=== PATIENT | male | born 1960 | race Caucasian/White ===

== ENCOUNTER 2022-06-19 11:33 | Observation (INO) | payer MEDICARE, MEDICAID, SELFPAY ==
[2022-06-19] VITALS (12 sets, daily range): BP systolic 116–154; BP diastolic 71–92; PULSE 51–70; RESP 15–34; TEMP 36.1–36.9; O2SAT 97–100; BMI 25.9; BMI 25.4
--- NOTE | 2022-06-19 12:01 | EKG12_ITS ---
Test Reason : CP Blood Pressure : / mmHG Vent. Rate : 065 BPM Atrial Rate : 065 BPM P-R Int : 176 ms QRS Dur : 086 ms QT Int : 404 ms P-R-T Axes : 051 069 049 degrees QTc Int : 420 ms Normal sinus rhythm with sinus arrhythmia Normal ECG Confirmed by ORQUIDEA ARZOLA, GEREMIAS ([id number]), editor producer RAJNI GOMEZ ([id number]) on 06/21/2022 6:38:49 AM Referred By: Confirmed By:GEREMIAS HEARD MD
--- NOTE | 2022-06-19 12:08 | EDS_ITS ---
HPI History of Present Illness Chief Complaint: Chest Pain Informant: patient Narrative Narrative: 62-year-old male presenting with chest pain. Started approximately 1 hour prior to arrival. Complains of midsternal chest pain associated with shortness of breath, diaphoresis, nausea. He states initially pain was 7 out of 10 currently 2 out of 10. Pain started at rest. He had recent work-up for syncope and is awaiting Holter monitor results. He states he had a syncopal episode approximately 3 days ago but was not seen in the ED following that episode. Denies PE/DVT risk factors. Prior Similar Symptoms: Yes Recent Illness/Hospitalization: No CVD Risk Factors: Positive for Smoking; Negative for Hypertension, Diabetes, Hypercholesterolemia or Family History 1' </=55 PE Risk Factors: Negative for Recent Travel/Surgery, Recent Immobilization, Prior DVT or PE, Cancer or OCP + Smoking + >/=35 PFSH PFSH Home Medications albuterol sulfate 90 mcg/actuation aerosol inhaler 2 puff inhalation Q4H PRN sob 06/19/22 [History Last Taken 06/19/22] Allergy/AdvReac Type Severity Reaction Status Date / Time No Known Allergies Allergy Verified 06/19/22 11:34 Surgical History Hx of elbow surgery Previous back surgery Social History Smoking Status: Current every day smoker tobacco type: cigarettes ROS ROS ED Constitutional Constitutional ED: Denies fever(s) Eyes Eyes: Denies change in vision ENT ENT ED: Denies rhinorrhea or sore throat Cardiovascular Cardiovascular: Reports chest pain; Denies palpitations Respiratory/Chest Respiratory/Chest: Reports dyspnea; Denies cough Gastrointestinal Gastrointestinal: Denies abdominal pain, diarrhea, nausea or vomiting Genitourinary Genitourinary ED: Denies dysuria Musculoskeletal Musculoskeletal: Denies myalgias Integumentary Denies rash Neurologic Neurologic: Denies headache(s) Psychiatric Psychiatric: Denies suicidal thoughts EXAM Physical Exam Const Vital Signs: 06/19/22 11:35 06/19/22 12:01 06/19/22 12:37 Temperature 98.2 F Temperature Source Temporal Pulse Rate 63 63 Respiratory Rate 18 21 H Blood Pressure 122/83 H 118/71 Blood Pressure Mean 96 86 Pulse Ox 100 100 98 Oxygen Delivery Method Room Air Room Air Room Air 06/19/22 13:00 06/19/22 14:00 Temperature Temperature Source Pulse Rate 62 58 L Respiratory Rate 34 H 18 Blood Pressure 116/79 121/81 H Blood Pressure Mean 91 94 Pulse Ox 98 98 Oxygen Delivery Method Positive well nourished and well developed General Appearance ED: well developed HEENT Reports normocephalic and head/scalp atraumatic Eyes PERRL and EOMs intact bilaterally Neck supple General: Negative for tenderness Chest Wall inspection of chest normal Resp normal respiratory effort and clear to auscultation bilaterally Cardio regular rate and regular rhythm GI non-tender and non-distended Palpation: soft; Negative for guarding or rebound tenderness present no CVA tenderness Extremity normal to inspection Neuro oriented x3 Sensorium / Orientation: alert Psych mental status grossly normal Heart Score History: Moderately Suspicious ECG: Normal Age: >45 - <65 years Risk Factors: 1 or 2 Risk Factors Troponin: </= Normal Limit Score: 3 MDM MDM MDM Narrative Medical decision making narrative: Patient was given aspirin on arrival. EKG is sinus rhythm rate of 65 with no acute ischemic changes. Patient denies medical history but does not see a physician regularly. CBC, chemistries are unremarkable. Troponin is negative. Patient is chest pain-free on reevaluation. His heart score is 3 but he does not see a physician regularly and does not know if he has underlying hypertension and hypercholesterolemia. Will discuss with hospitalist for observation. Lab Data Attestation: I reviewed the patient's lab results. Labs: Laboratory Results - last 24 hr 06/19/22 06/19/22 11:45 11:45 WBC 8.8 RBC 4.88 Hgb 15.0 Hct 44.0 MCV 90.2 MCH 30.7 MCHC 34.1 RDW Std Deviation 45.1 H RDW Coeff of Anila 13.5 Plt Count 251 MPV 9.7 Immature Gran % (Auto) 0.300 Neut % (Auto) 61.1 Lymph % (Auto) 29.5 [place] % (Auto) 6.7 Eos % (Auto) 1.8 Baso % (Auto) 0.6 Absolute Neuts (auto) 5.4 Absolute Lymphs (auto) 2.61 Nucleated RBC % 0 Sodium 141 Potassium 4.2 Chloride 107 Carbon Dioxide 30.0 Anion Gap 4 L BUN 14 Creatinine 0.88 Estim Creat Clear Calc 88.15 Est GFR (MDRD) Af Amer 113 Est GFR (MDRD) Non-Af 94 BUN/Creatinine Ratio 15.9 Glucose 90 Calcium 9.6 Troponin I High Sens 6 Radiography Chest X-Ray - ED: 1 View, Read by ED Physician, Read by Radiologist and No Acute Disease Diagnostic Testing: Clinical Impression(s) from Imaging Studies Chest X-Ray 06/19/22 12:31 IMPRESSION: No acute abnormality is seen. Electronically Signed: Juanito Xavier MD at 13:11 EDT , EKG Initial EKG: Attestation: I personally reviewed and interpreted this EKG as follows: Interpretation: Sinus Rhythm and No Acute Injury Pattern Discharge Plan Dx/Rx/DC Orders Clinical Impression: Chest pain Disposition Disposition: Acute Care Hospital [facility]
--- NOTE | 2022-06-19 12:31 | RAD_ITS ---
STUDY: X-RAY CHEST REASON FOR EXAM: Male, 62 years old. Chest pain. Bradycardia. Cough. Syncopal episode. TECHNIQUE: Single AP portable view of the chest. COMPARISON: None. FINDINGS: EKG electrodes are seen. The lungs are clear and expanded. Scattered calcified granulomas. There is no demonstrated pleural abnormality. Normal size heart. A recording device is seen overlying the upper left cardiac border. Normal mediastinum and bryan. Normal visualized pulmonary arteries. There is atherosclerotic calcification of the aortic arch with tortuosity. There are diffuse degenerative changes of the visualized thoracic spine. Normal visualized ribs, clavicles, and shoulders. There is no demonstrated abnormality of the visualized soft tissue structures of the upper abdomen. RAD/Chest 1 View (Portable) IMPRESSION: No acute abnormality is seen. Electronically Signed: Juanito Xavier MD at 13:11 EDT ,
[2022-06-19 12:36] LABS: Absolute Lymphocyte Count 2.61 X10^3/uL (0.83-4.51); Absolute Neutrophil Count 5.4 X10^3/uL (2.0-7.7); Basophil# 0.05 X10^3/uL; Basophil% 0.6 % (0-1); Eosinophil# 0.16 X10^3/uL; Eosinophils% 1.8 % (0-5); Lymphocyte # 2.61 X10^3/ul (0.83-4.51); Lymphocyte % 29.5 % (19-41); Mean Corp Hgb Conc 34.1 g/dL (32-36); Mean Corpuscular Hgb 30.7 pg (27.0-32.0); Mean Corpuscular Volume 90.2 fL (80-94); Mean Platelet Vol. 9.7 fl (6.2-12.0); Monocyte# 0.59 X10^3/uL; Monocyte% 6.7 % (0-10); NRBC Flagged by Analyzer 0 % (0-5); Neutrophil % 61.1 % (47-70); Platelet Count 251 K/mm3 (150-450); RBC Distribution Width CV 13.5 % (11.6-14.6); RBC Distribution Width SD 45.1 fl (35.1-43.9); Red Blood Count 4.88 M/mm3 (4.6-6.2); White Blood Count 8.8 K/mm3 (4.4-11.0)
[2022-06-19] MEDS: Aspirin 81 MG TAB.CHEW 324 MG PO (12:48)
[2022-06-19 12:49] LABS: Anion Gap 4 (5-15); BUN 14 mg/dL (7-18); BUN/Creat Ratio 15.9 RATIO (10-20); Calcium,Total 9.6 mg/dL (8.5-10.1); Chloride 107 mmol/L (98-107); Creatinine, Serum 0.88 mg/dL (0.70-1.30); EST Glomerular Filtration Rate 94 mL/min (>60); Est Glom Filt Rate - Afr Amer 113 mL/min (>60); Estimated Creatinine Clearance 88.15 ml/min; Glucose 90 mg/dL (74-106); Potassium 4.2 mmol/L (3.5-5.1); Sodium Level 141 mmol/L (136-145); Troponin-I HS (w/2H Reflex) 6 pg/mL (3.0-78.0)
[2022-06-19 14:29] LABS: Reflex Troponin-HS? (from REC) Y
[2022-06-19 15:07] LABS: Troponin-I HS 5 pg/mL (3.0-78.0)
--- NOTE | 2022-06-19 15:49 | PCM.HP.STD ---
[facility] - General General Date of Admission: 06/19/22 Date of Service: 06/19/22 Chief Complaint: Atypical chest pain for 1 month HPI Narrative SIMRAN MANLEY, is a 62 M with history of COPD/emphysema came to ED for chest pain left-sided for 1 month. Patient is accompanied with his son who also contributed to history. Patient stated that he gets chest pain on and off on left side mainly around the nipple which is reproducible on touch/pressure. Pain is localized, without radiation, but he gets dizzy lightheaded and recurrent passing out/syncope. No chest pain not associated with shortness of breath but patient has intermittent cough due to emphysema. No fever. Patient also has recurrent syncope for about 1 month, he passes out once daily or other day. He saw [facility] Dr. Barrera inside sales account manager and has portable event monitor/electronic monitor over left chest. He was told to wear for 1 month and then return to inside sales account manager. His son is states that his heart rate and blood pressure gets low when he falls but his fall is not related with standing/walking. He passes out while even on sitting/supine position. It is not accompanied with prodromal/warning symptoms. Duration of syncope usually few minutes and he wakes up with mild lethargy/groggy symptoms. Twelve-lead EKG sinus rhythm with nonspecific ST-T changes suggestive of ischemia. Chest x-ray did not show acute abnormality. [facility] Medical History Irregular heart beat Home Medications albuterol sulfate 90 mcg/actuation aerosol inhaler 2 puff inhalation Q4H PRN sob 06/19/22 [History Last Taken 06/19/22] Allergy/AdvReac Type Severity Reaction Status Date / Time No Known Allergies Allergy Verified 06/19/22 11:34 Surgical History Hx of elbow surgery Previous back surgery Social History Smoking Status: Current every day smoker tobacco type: cigarettes ROS ROS Narrative Constitutional: No fever. Recurrent syncope HEENT: Reports systems reviewed and no addt'l complaints, except as documented Respiratory/Chest: As described in HPI Gastrointestinal: Denies coffee ground emesis, hematemesis or vomiting Genitourinary: Denies burning urination or new urinary tract symptoms Musculoskeletal: Denies joint pain and limited range of motion. His toes gets cold and the skin grayish/pale. Neurologic: Denies seizure-like activity. No previous stroke. skin: No ulcer. No rash Endocrinology: Reports systems reviewed and no addt'l complaints, except as documented Hematologic/Lymphatic: Reports systems reviewed and no addt'l complaints, except as documented Rest 14 ROS are negative except as mentioned in HPI Vital Signs Vital Signs Vital Signs: 06/19/22 11:35 06/19/22 12:01 06/19/22 12:37 Temperature 98.2 F Temperature Source Temporal Pulse Rate 63 63 Pulse Strength Respiratory Rate 18 21 H Respiratory Effort Respiratory Depth Respiratory Pattern Blood Pressure 122/83 H 118/71 Blood Pressure Mean 96 86 Blood Pressure Source Blood Pressure Position Blood Pressure Location Pulse Ox 100 100 98 Oxygen Delivery Method Room Air Room Air Room Air 06/19/22 13:00 06/19/22 14:00 06/19/22 14:32 Temperature 97 F L Temperature Source Temporal Pulse Rate 62 58 L 55 L Pulse Strength Respiratory Rate 34 H 18 18 Respiratory Effort Respiratory Depth Respiratory Pattern Blood Pressure 116/79 121/81 H 124/81 H Blood Pressure Mean 91 94 95 Blood Pressure Source Blood Pressure Position Blood Pressure Location Pulse Ox 98 98 98 Oxygen Delivery Method Room Air 06/19/22 15:12 06/19/22 15:30 06/19/22 15:34 Temperature 97.4 F L Temperature Source Temporal Pulse Rate 60 63 Pulse Strength Normal (2+) Respiratory Rate 15 21 H Respiratory Effort Respiratory Depth Respiratory Pattern Blood Pressure 136/87 H 154/92 H Blood Pressure Mean 103 112 Blood Pressure Source Monitor Blood Pressure Position Semi-Fowlers Blood Pressure Location Left Arm Pulse Ox 97 99 Oxygen Delivery Method Room Air Room Air 06/19/22 15:41 Temperature Temperature Source Pulse Rate Pulse Strength Respiratory Rate Respiratory Effort Normal Non-Labored Respiratory Depth Normal Respiratory Pattern Normal Blood Pressure Blood Pressure Mean Blood Pressure Source Blood Pressure Position Blood Pressure Location Pulse Ox Oxygen Delivery Method Room Air Weight Weight: 172 lb 9.951 oz Body Mass Index (BMI) 25.4 Physical Exam Narrative Physical exam General: Alert, Oriented x3, Cooperative HEENT: Atraumatic, PERRLA, EOMI, Normocephalic Oral: No Gingival or Mucosal Lesions/ Ulcerations Neck: Supple, No JVD, Negative Carotid Bruits Lungs/chest wall: Electronic monitor over left chest wall. Tenderness around the left nipple area but no obvious swelling/abscess. Air entry diminished in bilateral lung bases. No crepitation/rhonchi Cardiovascular: Sinus rhythm, bradycardia, Normal S1, Normal S2, No murmurs Abdomen: Bowel Sounds Present, Soft, Non Tender, Non-Distended : No renal angle tenderness. No suprapubic tenderness. Extremities: No edema, Capillary Refill Less than 3 Seconds Skin: No rashes, No breakdown Musculoskeletal: No Tenderness to Palpation of Joints or Extremities Neurological: Cranial nerves II-XII grossly intact, DTR 2+/4 and Symmetrical, Neuro grossly intact Psych/Mental Status: Normal Affect, Appropriate. Results Lab / Micro Data Result Diagrams: 06/19/22 11:45 06/19/22 11:45 Labs: Laboratory Results - last 24 hr 06/19/22 11:45: WBC 8.8, RBC 4.88, Hgb 15.0, Hct 44.0, MCV 90.2, MCH 30.7, MCHC 34.1, RDW Std Deviation 45.1 H, RDW Coeff of Anila 13.5, Plt Count 251, MPV 9.7, Immature Gran % (Auto) 0.300, Neut % (Auto) 61.1, Lymph % (Auto) 29.5, [place] % (Auto) 6.7, Eos % (Auto) 1.8, Baso % (Auto) 0.6, Absolute Neuts (auto) 5.4, Absolute Lymphs (auto) 2.61, Nucleated RBC % 0 06/19/22 11:45: Sodium 141, Potassium 4.2, Chloride 107, Carbon Dioxide 30.0, Anion Gap 4 L, BUN 14, Creatinine 0.88, Estim Creat Clear Calc 88.15, Est GFR (MDRD) Af Amer 113, Est GFR (MDRD) Non-Af 94, BUN/Creatinine Ratio 15.9, Glucose 90, Calcium 9.6, Troponin I High Sens 6 06/19/22 14:39: Troponin I High Sens 5 Radiology Impression Chest X-Ray 06/19/22 12:31 IMPRESSION: No acute abnormality is seen. Electronically Signed: Juanito Xavier MD at 13:11 EDT , Assessment & Plan Assessment/Plan (1) Chest pain: PLAN: Plan This 62-year-old question gentleman being admitted for atypical chest pain. 1. Atypical chest pain for 1 month seems noncardiac: Patient is being admitted as an observation discharged. Rule out ACS. Serial troponin enzymes. EKG on admission. COURTNEY risk score 1. Patient does not have history of coronary artery disease/AR. His uncles had AR/coronary artery disease. Pharmacological nuclear stress tomorrow a.m. if serial troponins are negative. Patient was given aspirin in ED we will continue it. 2. Recurrent syncope, exact etiology unclear: Nature of syncope suggest cardiogenic syncope. Patient is already under evaluation for recurrent syncope with electronic monitor. Patient has sinus bradycardia. 2D echo is ordered. Patient denies having echo, stress or cardiac cath in the past. 3. COPD/emphysema: Patient on baseline home inhaler as needed. 4. VT prophylaxis, moderate risk: Heparin 5000 units subcutaneous twice daily. Living will/advanced directive/end of life care: Patient does not have living will or advanced directive. After discussion of benefits/risks procedures involved with full code, DNR CC arrest and DNR CC, the patient opted for full code. His son Hair is next to kin. Patient does want artificial life support including intubation, tube feed, ventilator and/chest compression, central venous catheter, vasopressor and DC shock if needed Total time spent in [id number] encounter in discussion of advanced directive 16 minutes. Laboratory Results 06/19/22 11:45: WBC 8.8, RBC 4.88, Hgb 15.0, Hct 44.0, MCV 90.2, MCH 30.7, MCHC 34.1, RDW Std Deviation 45.1 H, RDW Coeff of Anila 13.5, Plt Count 251, MPV 9.7, Immature Gran % (Auto) 0.300, Neut % (Auto) 61.1, Lymph % (Auto) 29.5, [place] % (Auto) 6.7, Eos % (Auto) 1.8, Baso % (Auto) 0.6, Absolute Neuts (auto) 5.4, Absolute Lymphs (auto) 2.61, Nucleated RBC % 0 06/19/22 11:45: Sodium 141, Potassium 4.2, Chloride 107, Carbon Dioxide 30.0, Anion Gap 4 L, BUN 14, Creatinine 0.88, Estim Creat Clear Calc 88.15, Est GFR (MDRD) Af Amer 113, Est GFR (MDRD) Non-Af 94, BUN/Creatinine Ratio 15.9, Glucose 90, Calcium 9.6, Troponin I High Sens 6 06/19/22 14:39: Troponin I High Sens 5 06/19/22 14:39: Magnesium Pending Clinical Impression(s) from Imaging Studies Chest X-Ray 06/19/22 12:31 IMPRESSION: No acute abnormality is seen. Electronically Signed: Juanito Xavier MD at 13:11 EDT , Charges/Coding Visit Charges OBSV E&M: 68335 Initial observation care L3 Procedures Hospitalists Procedures: 61410 Advncd Care Plan 30 Min
[2022-06-19 18:48] LABS: Troponin-I HS 7 pg/mL (3.0-78.0)
--- NOTE | 2022-06-19 18:51 | EKG12_ITS ---
Test Reason : AM EKG Blood Pressure : / mmHG Vent. Rate : 051 BPM Atrial Rate : 051 BPM P-R Int : 184 ms QRS Dur : 092 ms QT Int : 422 ms P-R-T Axes : 043 077 069 degrees QTc Int : 388 ms Sinus bradycardia with sinus arrhythmia Otherwise normal ECG Confirmed by ORQUIDEA ARZOLA, GEREMIAS ([id number]), design editor RAJNI GOMEZ ([id number]) on 06/21/2022 6:50:02 AM Referred By: Confirmed By:GEREMIAS HEARD MD
[2022-06-19] MEDS: Heparin Injection (Vial) 5,000 UNIT/ML VIAL 5000 UNIT SC (21:01)
[2022-06-20 03:04] VITALS: BP 115/75; PULSE 59; RESP 18; TEMP 36.2; O2SAT 96
[2022-06-20 03:32] VITALS: PULSE 57
--- NOTE | 2022-06-20 05:55 | EKG12_ITS ---
Test Reason : Blood Pressure : / mmHG Vent. Rate : 049 BPM Atrial Rate : 049 BPM P-R Int : 196 ms QRS Dur : 096 ms QT Int : 424 ms P-R-T Axes : 043 072 053 degrees QTc Int : 383 ms Sinus bradycardia Otherwise normal ECG Confirmed by ORQUIDEA ARZOLA, GEREMIAS ([id number]), staff editor RAJNI GOMEZ ([id number]) on 06/21/2022 6:50:28 AM Referred By: ABRIL Confirmed By:GEREMIAS HEARD MD
[2022-06-20] MEDS: Aspirin E.C. 81 MG Tablet PO (06:08)
[2022-06-20 06:10] LABS: Absolute Lymphocyte Count 2.97 X10^3/uL (0.83-4.51); Absolute Neutrophil Count 4.2 X10^3/uL (2.0-7.7); Basophil# 0.05 X10^3/uL; Basophil% 0.6 % (0-1); Eosinophil# 0.24 X10^3/uL; Hematocrit 40.9 % (40-54); Hemoglobin 13.5 g/dL (13.0-16.5); Lymphocyte # 2.97 X10^3/ul (0.83-4.51); Lymphocyte % 37.1 % (19-41); Mean Corpuscular Hgb 29.1 pg (27.0-32.0); Mean Corpuscular Volume 88.1 fL (80-94); Mean Platelet Vol. 9.8 fl (6.2-12.0); Monocyte# 0.51 X10^3/uL; Monocyte% 6.4 % (0-10); NRBC Flagged by Analyzer 0 % (0-5); Neutrophil # 4.21 X10^3/uL (2.7-7.7); Neutrophil % 52.6 % (47-70); Platelet Count 220 K/mm3 (150-450); RBC Distribution Width CV 13.5 % (11.6-14.6); Red Blood Count 4.64 M/mm3 (4.6-6.2)
[2022-06-20 07:12] LABS: Anion Gap 3 (5-15); BUN 20 mg/dL (7-18); BUN/Creat Ratio 23.1 RATIO (10-20); Calcium,Total 9.2 mg/dL (8.5-10.1); Chloride 109 mmol/L (98-107); Cholesterol 184 mg/dL (200); Creatinine, Serum 0.87 mg/dL (0.70-1.30); EST Glomerular Filtration Rate 95 mL/min (>60); Est Glom Filt Rate - Afr Amer 115 mL/min (>60); Estimated Creatinine Clearance 89.17 ml/min; Glucose 103 mg/dL (74-106); High Density Lipoprotein 39 mg/dL; Potassium 3.9 mmol/L (3.5-5.1); Sodium Level 140 mmol/L (136-145); Thyroid Stim Hormone (TSH) 0.22 uIU/mL (0.358-3.74); Triglycerides 88 mg/dL; Very Low Density Lipoprotein 18 mg/dL (5-40)
[2022-06-20 07:20] VITALS: PULSE 79
--- NOTE | 2022-06-20 08:44 | STRESSREP_ITS ---
Stress Test Report Date: 06-20-2022 Procedure: Pharmacologic stress nuclear imaging study Indications: Chest pain; syncope Consent: Per the patient Procedure: The patient underwent pharmacologic (Regadenoson 0.4mg ) evaluation with a peak heart rate of 100 beats per minute (62%predicted maximal heart rate) and resting blood pressure of 132/64 mmHg and a peak blood pressure of 150/72 mmHg. The baseline ECG demonstrated normal sinus rhythm. The peak pharmacologic ECG demonstrated no obvious ECG changes. There was a rare PVC during recovery. There was no complaint of chest discomfort during pharmacologic infusion or recovery. The examination was discontinued secondary to completion of protocol. Impression: 1. Pharmacologic (Regadenoson) evaluation 2. Peak pharmacologic ECG with no obvious ECG changes. 3. There was a rare PVC during recovery. 4. Nuclear images pending Myocardial perfusion imaging study: Technique: The patient was injected with 12.0 millicuries of technetium 99m Cardiolite and subsequently rest SPECT Cardiolite nuclear imaging was obtained in the horizontal long, vertical long, and short axis views. The patient underwent pharmacologic (Regadenoson) evaluation with a peak heart rate of 100 beats per minute (62% percent predicted maximal heart rate) and a resting blood pressure 132/64 mmHg and a peak blood pressure of 150/72 mmHg mmHg. The patient was injected with 34.0 millicuries of technetium 99m Cardiolite and subsequently stress SPECT Cardiolite nuclear imaging was obtained in the horizontal long, vertical long, and short axis views. A gated Cardiolite study at peak stress was obtained. Interpretation: Rest and stress SPECT Cardiolite nuclear imaging status post realignment, normalization, and attenuation correction demonstrate a small area of subtle diminished tracer uptake near the distal anterior segments without significant change between rest and stress. There is end systolic thickening and brightening. The gated Cardiolite study demonstrates myocardial thickening and inward wall motion. The reported LVEF is 60%. Impression: 1. Rest and stress SPECT her nuclear imaging demonstrate a small area of subtle diminished tracer uptake near the distal anterior segments without significant change between rest and stress potentially compatible with soft tissue attenuation/artifact although a small area of previous myocardial injury/infarction cannot necessarily be excluded. There are no myocardial perfusion changes considered diagnostic for associated stress-induced myocardial ischemia. 2. The gated Cardiolite study reports an LVEF of 60%. This note was generated with textmetix software. It may contain incorrect words, spelling, and punctuation that were not noted in checking the note before signing.
--- NOTE | 2022-06-20 09:01 | ECHOD_ITS ---
Reason For Study: Chest Pain Procedure This was a 2D Doppler, Color Flow transthoracic echocardiogram. The exam was of adequate technical quality. Exam performed portable in patient room. Left Ventricle Normal LV size. Left ventricular systolic function is normal. The estimated ejection fraction is 55 %. No evidence for diastolic dysfunction. No regional wall motion abnormalities noted. Right Ventricle Normal RV size. Normal systolic function. Atria Normal left atrium. Normal right atrium. No doppler evidence for ASD. Mitral Valve There is no mitral annular calcification. Normal mitral valve. Mild (1+) mitral valve insufficiency. Tricuspid Valve Normal tricuspid valve. Mild eccentric tricuspid valve insufficiency. Unable to estimate RV systolic pressure due to insufficient tricuspid regurgitant envelope. Aortic Valve Trisinus/trileaflet aortic valve. Mild diffuse aortic valve thickening. Pulmonic Valve The pulmonic valve is not well visualized. Trivial pulmonic valve insufficiency. Great Vessels The aortic root is not well visualized. Pericardium/Pleural No pericardial effusion. MMode/2D Measurements & Calculations LVIDd: 5.5 cm IVSd: 0.97 cm LA dimension: 3.6 cm LVIDs: 3.5 cm LVPWd: 0.89 cm FS: 36.0 % LAV(MOD-bp): 41.5 ml LA A4 area: 13.7 cm2 RA A4 area: 14.2 cm2 LAV(MOD-bp) Indexed: 21.4 ml/m2 LAV(MOD-sp2): 46.6 ml LAV(MOD-sp4): 34.4 ml Time Measurements MV dec time: 0.15 sec Doppler Measurements & Calculations MV E max nicolas: 69.1 cm/sec Lat Peak E' Nicolas: 10.1 cm/sec Med Peak E' Nicolas: 9.7 cm/sec MV A max nicolas: 69.0 cm/sec E/E' lat: 6.9 E/E' med: 7.1 MV E/A: 1.0 MV V2 max: 93.4 cm/sec MV P1/2t max nicolas: 93.4 cm/sec Ao V2 max: 115.7 cm/sec MV max P.5 mmHg MV P1/2t: 62.1 msec Ao max P.4 mmHg MV V2 mean: 44.1 cm/sec MV dec slope: 440.6 cm/sec2 Ao V2 mean: 78.4 cm/sec MV mean P.98 mmHg MVA(P1/2t): 3.5 cm2 Ao mean P.9 mmHg MV V2 VTI: 30.4 cm Ao V2 VTI: 26.4 cm LV V1 max: 92.8 cm/sec MR max nicolas: 444.6 cm/sec PA V2 max: 96.5 cm/sec LV V1 max P.4 mmHg MR max P.1 mmHg LV V1 mean P.7 mmHg LV V1 mean: 61.3 cm/sec LV V1 VTI: 19.6 cm ECHO/Echo Complete Interpretation Summary Left ventricular systolic function is normal. The estimated ejection fraction is 55 %. Mild (1+) mitral valve insufficiency. Mild eccentric tricuspid valve insufficiency. Mild diffuse aortic valve thickening. Trivial pulmonic valve insufficiency. Unable to estimate RV systolic pressure due to insufficient tricuspid regurgita nt envelope. No evidence for diastolic dysfunction. Ordering Physician: Anna Laboy Performed By: Jae Rizzo RCS
[2022-06-20 09:13] VITALS: BP 128/65; PULSE 69; RESP 16; TEMP 36.5; O2SAT 100
[2022-06-20 09:27] LABS: T4 Free Direct 0.88 ng/dL (0.76-1.46)
--- NOTE | 2022-06-20 11:53 | CHAPLAIN ---
Type of Pastoral Visit _x__ Initial Visit ___ Follow-up Visit ___ On-call Visit ___ General Patient Visit ___ Spiritual Assessment ___ Family Conference ___ Bereavement ___ Rapid Response ___ Code Blue ___ Other (describe below) Pastoral Care Referral From _x__ Patient ___ Family ___ Nurse ___ Physician ___ Personal Finance Instructor ___ Electrical Helper ___ Other (describe below) Sacrament/Intervention _x__ Active listening ___ Anointing ___ Confucianism ___ Bereavement ___ Communion ___ [place] exploration ___ ___ Life review _x__ Prayer ___ Reconciliation ___ Sacrament of Sick ___ Supportive presence ___ Wedding ___ Other (describe below) Pastoral Comments 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
[2022-06-20 12:29] VITALS: PULSE 59
--- NOTE | 2022-06-20 14:31 | PCM.DC ---
Discharge Instructions Diet Discharge Diet: No restrictions Activity Discharge Activity: Return to Normal Activity Follow Up Care Test Results: Test results from this visit will be discussed in further detail at your follow-up appointment, if applicable. Discharge Plan Admission Admit Date/Time: 06/19/22 14:30 Primary Reason for Your Visit: Chest pain Attending Provider: Anna Laboy Primary Care Provider: Maged Casillas Consulting Providers: Joaquín Aly Instructions Patient Instructions: COPD Quit Smoking, Planning to Quit Smoking Additional Instructions / Restrictions: - Please follow-up with your [facility] doctor to discuss your heart monitor - it is important you establish with a primary care physician for further coordination of care. You have indicated you will obtain one through the [facility] to have your healthcare team in the [employer] system. - Please return to the emergency department with any concerning signs or symptoms. Discharge Orders/Prescriptions Prescriptions: Continued albuterol sulfate 90 mcg/actuation HFA aerosol inhaler 2 puff INHALATION Q4H PRN (Reason: sob) Label Comments: Inhale 2 Puffs as instructed every 4 hours as needed for wheezing/shortness of breath. Referrals / Follow Up: Maged Casillas MD [Primary Care Provider] - Galen Cavazos MD [Non-Staff] - Disposition Disposition (needs filled in before D/C Order can be placed): Home, Self Care
--- NOTE | 2022-06-20 15:29 | CASEMGMT ---
CHRISTOPHER LEVY attempted to complete URIARTE form with patient. Patient was discharged and unable to complete URIARTE.
--- NOTE | 2022-06-20 17:30 | DS.PCM_ITS ---
Providers Date of Admission: 06/19/22 Date of Discharge: 06/20/22 Primary Care Physician: Dr. Maged Casillas MD Reason For Visit: CHEST PAIN Diagnosis Discharge Diagnosis (1) Chest pain: Status: Acute Code(s): R07.9 - Chest pain, unspecified Medications at Discharge Home Medications albuterol sulfate 90 mcg/actuation aerosol inhaler 2 puff inhalation Q4H PRN sob 06/19/22 Hospital Course Procedures Nuclear stress test and Transthoracic echo Summary of Care Provided Minutes Spent on Discharge: 20 Hospital Course: Mr. Rosales is a [age]-year-old gentleman with a history of COPD who presented 06/19/2022 for atypical chest pain over 1 month. It is primarily left-sided and reproducible on touch/pressure it does not radiate. Was having intermittent dizziness, though does note that he has had recurrent syncope and is following with [facility] for this. No changes in his breathing, intermittent cough with his COPD. He is wearing a heart monitor at this time and is supposed to wear for 1 month and then follow-up with cardiology. Troponins were negative, EKG nonspecific. Chest x-ray no acute abnormalities. He underwent a stress test that showed questionable artifact versus small area of previous myocardial injury. His echo however showed no regional wall motion abnormalities. Did discuss with lay out former regarding his stress test and echo and further work-up and it was deemed no further work-up necessary. Will discharge home in stable condition and advised to continue to follow-up with [facility] cardiology. Does note that he is looking to get a primary care physician but would like to go through [facility] for that as well so his healthcare team remains in the same system. On day of discharge 06/20/2022 he denied any new complaints, did still have chest soreness that was reproducible but mild. No other complaints aside from feeling cold in general which has been present for months. Did note that legs were cold and he felt his left leg was colder than his right, this was not observed on exam and pulses 2+ DP/Td bilaterally Physical Exam Const alert and oriented x3 General Appearance: cooperative and comfortable HEENT normocephalic and head/scalp atraumatic Eyes EOMs intact bilaterally Neck supple Resp normal respiratory effort and clear to auscultation bilaterally Cardio regular rate and regular rhythm GI soft to palpation, non-tender and non-distended Extremity normal to inspection Extremity Narrative: 2+ pulses in MANJIT/DP bilaterally 2+ pulses NTD/DP bilaterally, legs are cool but no significant difference between temperatures, no mottling or cyanosis Skin no rashes or lesions noted Neuro moves all extremities Psych affect normal Weight / BMI Weight Weight: 78.6 kg Body Mass Index (BMI) 25.4 ABG / Lab / Microbiology Data Result Diagrams: 06/20/22 05:18 06/20/22 05:18 Laboratory: Laboratory Results - last 24 hr 06/19/22 18:07: Troponin I High Sens 7 06/20/22 05:18: WBC 8.0, RBC 4.64, Hgb 13.5, Hct 40.9, MCV 88.1, MCH 29.1, MCHC 33.0, RDW Std Deviation 44.0 H, RDW Coeff of Anila 13.5, Plt Count 220, MPV 9.8, Immature Gran % (Auto) 0.300, Neut % (Auto) 52.6, Lymph % (Auto) 37.1, Wilkes % (Auto) 6.4, Eos % (Auto) 3.0, Baso % (Auto) 0.6, Absolute Neuts (auto) 4.2, Absolute Lymphs (auto) 2.97, Nucleated RBC % 0 06/20/22 05:18: Sodium 140, Potassium 3.9, Chloride 109 H, Carbon Dioxide 28.0, Anion Gap 3 L, BUN 20 H, Creatinine 0.87, Estim Creat Clear Calc 89.17, Est GFR (MDRD) Af Amer 115, Est GFR (MDRD) Non-Af 95, BUN/Creatinine Ratio 23.1 H, Glucose 103, Calcium 9.2, Triglycerides 88, Cholesterol 184, LDL Cholesterol 127, VLDL Cholesterol 18, HDL Cholesterol 39 L, TSH 0.22 L 06/20/22 05:18: Free T4 0.88 Radiography Diagnostic Testing: Radiology Impression Echocardiogram 06/20/22 09:01 Interpretation Summary Left ventricular systolic function is normal. The estimated ejection fraction is 55 %. Mild (1+) mitral valve insufficiency. Mild eccentric tricuspid valve insufficiency. Mild diffuse aortic valve thickening. Trivial pulmonic valve insufficiency. Unable to estimate RV systolic pressure due to insufficient tricuspid regurgitant envelope. No evidence for diastolic dysfunction. Ordering Physician: Anna Laboy Performed By: Jae Rizzo RCS D/C Instructions Discharge Diet: No restrictions Meaningful Use Info Meaningful Use Diagnoses (Choose all that apply): None applicable Discharge Plan Admission Admit Date/Time: 06/19/22 14:30 Primary Reason for Your Visit: Chest pain Attending Provider: Anna Laboy Primary Care Provider: Maged Casillas Consulting Providers: Joaquín Aly Instructions Patient Instructions: COPD Quit Smoking, Planning to Quit Smoking Additional Instructions / Restrictions: - Please follow-up with your [facility] doctor to discuss your heart monitor - it is important you establish with a primary care physician for further coordination of care. You have indicated you will obtain one through the [facility] to have your healthcare team in the [facility] [employer] system. - Please return to the emergency department with any concerning signs or symptoms. Discharge Orders/Prescriptions Prescriptions: Continued albuterol sulfate 90 mcg/actuation HFA aerosol inhaler 2 puff INHALATION Q4H PRN (Reason: sob) Label Comments: Inhale 2 Puffs as instructed every 4 hours as needed for wheezing/shortness of breath. Referrals / Follow Up: Maged Casillas MD [Primary Care Provider] - Galen Cavazos MD [Non-Staff] - Disposition Disposition (needs filled in before D/C Order can be placed): Home, Self Care Charges/Coding Visit Charges OBSV E&M: 39270 Observation care discharge
== END 2022-06-20 14:35 | disposition home or self-care (01) ==
LOC: ED 14:33 → PCU 14:50
PROVIDERS: Admitting Provider Internal Medicine; Emergency Provider Emergency Medicine; PCP Family Medicine; Visit Provider Internal Medicine
DX: R07.89 Other chest pain (principal); J43.9 Emphysema, unspecified; R55 Syncope and collapse; R42 Dizziness and giddiness; F17.210 Nicotine dependence, cigarettes, uncomplicated; R00.1 Bradycardia, unspecified
CPT/HCPCS: 36415; 71045; 78452; 80048; 80061; 83735; 84439; 84443; 84484; 85025; 93005; 93017; 93306; 96372; 99218; 99285; 99406; A9500; A4216; G0378; J2785

== ENCOUNTER 2022-07-01 03:28 | Emergency (ER) | payer MEDICARE, MEDICAID, SELFPAY ==
[2022-07-01 03:29] VITALS: BP 120/68; PULSE 80; RESP 18; TEMP 37.3; O2SAT 97; BMI 25.4
--- NOTE | 2022-07-01 04:10 | EX.ED.DYSGE1 ---
HPI History of Present Illness Chief Complaint: Back Narrative Narrative: Patient is a 62-year-old male with past medical history of COPD/emphysema as well as low back pain. He states that his low back typically hurts but over the last few days has had increasing left-sided low back pain radiating down towards his toes. He denies any loss of bowel or bladder control or IV drug use. He denies any recent trauma or excessive activity. He denies any hematuria or dysuria. He states that the pain is not improving with time or [id number] medications and secondary to this he comes in for evaluation [facility] Medical History Chest pain Irregular heart beat Home Medications albuterol sulfate 90 mcg/actuation aerosol inhaler 2 puff inhalation Q4H PRN sob 06/19/22 [History Last Taken 06/19/22] hydrocodone-acetaminophen 5-325mg 5mg-325mg 1 tab PO Q6H PRN pain 3 days #12 tabs 07/01/22 [Rx Last Taken Unknown] methocarbamol 500 mg tablet 1,000 mg PO 4X/DAY PRN PRN Muscle pain/spasm #56 tabs 07/01/22 [Rx Last Taken Unknown] ondansetron 4 mg disintegrating tablet 4 mg PO TID PRN nausea and vomiting #21 tabs 07/01/22 [Rx Last Taken Unknown] Allergy/AdvReac Type Severity Reaction Status Date / Time No Known Allergies Allergy Verified 06/19/22 11:34 Surgical History Hx of elbow surgery Previous back surgery Social History Smoking Status: Current every day smoker tobacco type: cigarettes ROS ROS ED Constitutional Constitutional ED: Denies chills or fever(s) ENT ENT ED: Denies sore throat Cardiovascular Cardiovascular: Denies chest pain Respiratory/Chest Respiratory/Chest: Denies cough or dyspnea Gastrointestinal Gastrointestinal: Denies abdominal pain, diarrhea, nausea or vomiting Genitourinary Genitourinary ED: Denies dysuria Musculoskeletal Musculoskeletal: Reports back pain Integumentary Denies rash Neurologic Neurologic: Reports paresthesias and weakness; Denies headache(s) Hematologic/Lymphatic Hematologic/Lymphatic: Denies easy bleeding or easy bruising EXAM Physical Exam Const Vital Signs: 07/01/22 03:29 Temperature 99.2 F H Temperature Source Temporal Pulse Rate 80 Respiratory Rate 18 Blood Pressure 120/68 Blood Pressure Mean 85 Pulse Ox 97 Positive well nourished and well developed General Appearance ED: well developed Eyes PERRL and EOMs intact bilaterally Neck supple Resp normal respiratory effort Resp Narrative: Faint wheeze noted in the bilateral lower lobes consistent with history of emphysema but no signs of respiratory distress Cardio regular rate and regular rhythm Rate: other Other Details: Radial pulses are plus 2 out of 4 bilaterally are equal and symmetric GI normal to inspection, nondistended, normoactive bowel sounds, non-tender and non-distended Auscultation: normoactive bowel sounds Palpation: soft Back/Spine Back/Spine Narrative: No bony deformity or step-off of the thoracic or lumbar spine no midline pain with palpation. There is pain on palpation in the left paralumbar muscle belly region. No saddle anesthesia noted. Positive straight leg raise on left. Negative clonus and Babinski. Patellar reflexes are plus 3 out of 4 bilaterally. No foot drop noted. Patient does have increased weakness of the left leg compared to right. Extremity normal to inspection Extremity Narrative: No asymmetric edema no pitting edema negative Homans' sign bilaterally Neuro oriented x3, CN's II-XII intact bilaterally and no sensory deficits noted Sensorium / Orientation: alert Psych mental status grossly normal Skin no rashes or lesions noted MDM MDM MDM Narrative Medical decision making narrative: Patient presented to the ER with stable vitals. He did not have any red flags concerning for cauda equina or epidural abscess. His exam is consistent with lumbar radiculopathy. We discussed obtaining a CT scan to check for possible spinal stenosis and nerve impingement but we did also discuss how CT is not as sensitive as MRI and may not show the true cause of his symptoms. Patient asked if the CT scan would change plan of care and at this time it would not as his vitals are stable and he has no signs of neuro claudication. Therefore he will be treated symptomatically and can follow-up on an outpatient basis for repeat evaluation and discuss outpatient MRI for further evaluation of his worsening back pain. Discharge Plan Triage Chief Complaint: Back ED Provider: Fili Escudero Dx/Rx/DC Orders Clinical Impression: Acute lumbar radiculopathy, Emphysema/COPD Instructions: Understanding Lumbar Radiculopathy Prescriptions: New hydrocodone-acetaminophen 5-325 mg tablet 1 tab PO Q6H PRN (Reason: pain) 3 Days Qty: 12 0RF methocarbamol 500 mg tablet 1,000 mg PO 4X/DAY PRN PRN (Reason: Muscle pain/spasm) Qty: 56 0RF ondansetron 4 mg tablet,disintegrating 4 mg PO TID PRN (Reason: nausea and vomiting) Qty: 21 0RF No Action albuterol sulfate 90 mcg/actuation HFA aerosol inhaler 2 puff INHALATION Q4H PRN (Reason: sob) Label Comments: Inhale 2 Puffs as instructed every 4 hours as needed for wheezing/shortness of breath. Primary Care Provider: Maged Casillas Referrals: Maged Casillas MD [Primary Care Provider] - Zak Queen DO [Med Staff - Active Staff] - Activity Restrictions/Additional Instructions: Please take your medication as directed to help control your symptoms and follow-up with Dr. Queen for further evaluation and possible MRI to further assess the cause of your pain. If you have any further concerns please return to the ER for repeat evaluation Disposition Disposition: Home, Self Care Discharge Date/Time: 07/01/22 04:46
[2022-07-01] MEDS: Ondansetron ODT 4 MG Tablet PO (04:13)
[2022-07-01] MEDS: Morphine 4 MG/ML Syringe 8 MG IM (04:15)
[2022-07-01] MEDS: dexAMETHasone 10 MG/ML Vial IM (04:15)
[2022-07-01] MEDS: Orphenadrine 60 MG/2 ML Ampul IM (04:15)
== END 2022-07-01 04:46 | disposition home or self-care (01) ==
PROVIDERS: Emergency Provider Emergency Medicine; PCP Family Medicine; Visit Provider Emergency Medicine
DX: M54.16 Radiculopathy, lumbar region (principal); J43.9 Emphysema, unspecified; F17.210 Nicotine dependence, cigarettes, uncomplicated
CPT/HCPCS: 96372; 99283

== ENCOUNTER 2022-09-06 19:02 | Observation (INO) | payer MEDICARE, MEDICAID, SELFPAY ==
[2022-09-06 19:03] VITALS: BP 157/88; PULSE 71; RESP 69; TEMP 36.6; O2SAT 100; BMI 27.2
--- NOTE | 2022-09-06 19:08 | EKG12_ITS ---
Test Reason : DYSRHYTHMIA Blood Pressure : / mmHG Vent. Rate : 068 BPM Atrial Rate : 068 BPM P-R Int : 162 ms QRS Dur : 096 ms QT Int : 390 ms P-R-T Axes : 051 078 069 degrees QTc Int : 414 ms Normal sinus rhythm Normal ECG Confirmed by USMAN ARZOLA, MEAGAN ([id number]), greeting card editor RAJNI GOMEZ ([id number]) on 09/08/2022 6:34:51 AM Referred By: MARY Confirmed By:JOSÉ MIGUEL MARY MD
[2022-09-06 19:09] VITALS: O2SAT 99
--- NOTE | 2022-09-06 19:10 | RAD_ITS ---
STUDY: X-RAY CHEST REASON FOR EXAM: Male, 62 years old. chest pain TECHNIQUE: XR Chest 1 View COMPARISON: 06.19.22 FINDINGS: There is atherosclerotic calcification of the aortic arch with tortuosity. There are diffuse degenerative changes of the visualized thoracic spine. There is degenerative osteoarthritis of the bilateral shoulders. There is no demonstrated pleural abnormality. Normal size heart. Normal mediastinum and bryan. Normal visualized pulmonary arteries. There is no demonstrated abnormality of the visualized soft tissue structures of the upper abdomen. RAD/Chest 1 View (Portable) IMPRESSION: There are no acute findings. Electronically Signed: Chuy Michael MD at 19:33 EST ,
[2022-09-06 19:20] LABS: Absolute Neutrophil Count 4.4 X10^3/uL (2.0-7.7); Basophil# 0.07 X10^3/uL; Basophil% 0.7 % (0-1); Eosinophil# 0.34 X10^3/uL; Eosinophils% 3.3 % (0-5); Hemoglobin 15.1 g/dL (13.0-16.5); Lymphocyte % 46.1 % (19-41); Mean Corp Hgb Conc 32.8 g/dL (32-36); Mean Corpuscular Hgb 29.8 pg (27.0-32.0); Mean Corpuscular Volume 90.9 fL (80-94); Mean Platelet Vol. 9.4 fl (6.2-12.0); Monocyte# 0.83 X10^3/uL; NRBC Flagged by Analyzer 0 % (0-5); Neutrophil # 4.35 X10^3/uL (2.7-7.7); Neutrophil % 41.7 % (47-70); Platelet Count 291 K/mm3 (150-450); RBC Distribution Width CV 13.3 % (11.6-14.6); RBC Distribution Width SD 45.1 fl (35.1-43.9); Red Blood Count 5.06 M/mm3 (4.6-6.2); White Blood Count 10.4 K/mm3 (4.4-11.0)
--- NOTE | 2022-09-06 19:25 | ED.RN ---
NIH done and Dr Burt made aware of neuro sx
--- NOTE | 2022-09-06 19:44 | CT_ITS ---
EXAM: CT ANGIOGRAPHY CHEST WITHOUT AND WITH INTRAVENOUS CONTRAST CLINICAL INDICATION: chest pain TECHNIQUE: Helically acquired angiography images were obtained of the chest without and with intravenous contrast. This CT exam was performed using one or more of the following dose reduction techniques: automated exposure control, adjustment of the mA and/or kV according to patient size, and/or use of iterative reconstruction technique. This report was created using [employer] report generation technology. MIP reconstructed images were created and reviewed. CONTRAST: IV 100mL Isovue-370 RADIATION DOSE: CTDIvol = 28.14 mGy, DLP = 3062.43 mGy-cm COMPARISON: None. FINDINGS: PULMONARY ARTERIES: No demonstrated pulmonary embolism or arterial dissection. AORTA: There is atherosclerotic calcification of the aortic arch with tortuosity and elongation of the aortic arch and descending thoracic aorta. Normal in caliber. No evidence of dissection. GREAT VESSELS OF AORTIC ARCH: Unremarkable. Normal in caliber. No evidence of dissection. LUNGS AND PLEURAL SPACES: Unremarkable. No mass. No consolidation or edema. No pleural effusion or thickening. No pneumothorax. HEART: There are calcifications of the coronary arteries. No pericardial effusion. No signs of right heart strain, ratio of right ventricle to left ventricle measures less than 1. MEDIASTINUM: Unremarkable. No mediastinal or hilar adenopathy. Esophagus is unremarkable. No hiatal hernia. THYROID: Unremarkable. No thyroid lesions. BONES/JOINTS: There are degenerative changes of the shoulders. There are multi-level degenerative changes of the thoracic spine. No suspicious lytic or blastic abnormality. OTHER FINDINGS: aidocs negative. CT/CTA Chest W/WO Contrast IMPRESSION: No demonstrated pulmonary embolism or arterial dissection. Electronically Signed: Chuy Michael MD at 21:26 EST ,
--- NOTE | 2022-09-06 19:44 | CT_ITS ---
EXAM: CT ANGIOGRAPHY HEAD AND NECK WITH INTRAVENOUS CONTRAST CLINICAL INDICATION: blurred vision/paresthesia TECHNIQUE: [place]/head and neck CT angiography protocol performed with intravenous contrast. This CT exam was performed using one or more of the following dose reduction techniques: automated exposure control, adjustment of the mA and/or kV according to patient size, and/or use of iterative reconstruction technique. This report was created using [employer] report generation technology. MIP reconstructed images were created and reviewed. CONTRAST: IV 100mL Isovue-370 RADIATION DOSE: CTDIvol = 28.14 mGy, DLP = 3062.43 mGy-cm COMPARISON: None. FINDINGS: HEAD: RIGHT ANTERIOR CEREBRAL ARTERY: Unremarkable. No significant stenosis at the visualized segments. Anterior communicating artery is present. No aneurysm. RIGHT MIDDLE CEREBRAL ARTERY: Unremarkable. No significant stenosis at the visualized segments. No aneurysm. RIGHT POSTERIOR CEREBRAL ARTERY: Unremarkable. No occlusion or significant stenosis. No aneurysm. RIGHT INTRACRANIAL INTERNAL CAROTID ARTERY: See below. RIGHT INTRACRANIAL VERTEBRAL ARTERY: Unremarkable. No significant stenosis. No dissection or occlusion. LEFT ANTERIOR CEREBRAL ARTERY: Unremarkable. No significant stenosis at the visualized segments. No aneurysm. LEFT MIDDLE CEREBRAL ARTERY: Unremarkable. No significant stenosis at the visualized segments. No aneurysm. LEFT POSTERIOR CEREBRAL ARTERY: Unremarkable. No occlusion or significant stenosis. No aneurysm. LEFT INTRACRANIAL INTERNAL CAROTID ARTERY: Unremarkable. No significant stenosis. No dissection or occlusion. LEFT INTRACRANIAL VERTEBRAL ARTERY: Unremarkable. No significant stenosis. No dissection or occlusion. BASILAR ARTERY: Unremarkable. No significant stenosis. No aneurysm. OTHER VASCULATURE: There is mild atherosclerotic plaque formation of the origin of the right internal carotid artery with less than 50% cross sectional diameter stenosis. ALL ABOVE CRITERIA BY NASCET. There is calcified plaque formation of the right cavernous carotid artery, with a mild stenosis (less than 50%). ALL ABOVE CRITERIA BY NASCET. BRAIN AND EXTRA-AXIAL SPACES: Normal size ventricles and extra-axial spaces for the patient''s age. Normal white matter tracts of the cerebral hemispheres. Normal basal ganglia and thalami. Normal brainstem. Normal cerebellum. There is no intracranial hemorrhage. There are no findings of an acute ischemic infarction. NECK: RIGHT COMMON CAROTID ARTERY: Unremarkable. No significant stenosis. No dissection or occlusion. RIGHT EXTRACRANIAL INTERNAL CAROTID ARTERY: See above. RIGHT EXTERNAL CAROTID ARTERY: Unremarkable. No occlusion. RIGHT EXTRACRANIAL VERTEBRAL ARTERY: Unremarkable. No significant stenosis. No dissection or occlusion. LEFT COMMON CAROTID ARTERY: Unremarkable. No significant stenosis. No dissection or occlusion. LEFT EXTRACRANIAL INTERNAL CAROTID ARTERY: Unremarkable. No significant stenosis. No dissection or occlusion. LEFT EXTERNAL CAROTID ARTERY: Unremarkable. No occlusion. LEFT EXTRACRANIAL VERTEBRAL ARTERY: Unremarkable. No significant stenosis. No dissection or occlusion. GREAT VESSELS OF AORTIC ARCH: There is calcified plaque formation of the left cavernous carotid artery, with a mild stenosis (less than 50%). ALL ABOVE CRITERIA BY NASCET. LUNG APICES: Unremarkable as visualized. HEAD and NECK: BONES/JOINTS: Normal calvarium. Normal soft tissues. There are degenerative findings of the cervical spine. No discrete lytic or blastic abnormalities. SOFT TISSUES: See above. OTHER FINDINGS: There are no acute findings of the [place] without a demonstrated aneurysm or hemodynamically significant stenosis. ALL ABOVE CRITERIA BY NASCET. CAROTID STENOSIS REFERENCE USING NASCET CRITERIA: % ICA stenosis = (1 - narrowest ICA diameter/diameter of distal cervical ICA) x 100. Mild - <50% stenosis. Moderate - 50-69% stenosis. Severe - 70-94% stenosis. Near occlusion - 95-99% stenosis. Occluded - 100% stenosis. CT/CTA Head AND Neck W/ Contrast IMPRESSION: 1. There are no acute findings of the [place] without a demonstrated aneurysm or hemodynamically significant stenosis. ALL ABOVE CRITERIA BY NASCET. 2. There is mild atherosclerotic plaque formation of the origin of the right internal carotid artery with less than 50% cross sectional diameter stenosis. ALL ABOVE CRITERIA BY NASCET. 3. There is calcified plaque formation of the right cavernous carotid artery, with a mild stenosis (less than 50%). ALL ABOVE CRITERIA BY NASCET. 4. There is calcified plaque formation of the left cavernous carotid artery, with a mild stenosis (less than 50%). ALL ABOVE CRITERIA BY NASCET. Electronically Signed: Chuy Michael MD at 21:25 EST ,
[2022-09-06 19:53] LABS: Anion Gap 4 (5-15); BUN 18 mg/dL (7-18); BUN/Creat Ratio 18.9 RATIO (10-20); Calcium,Total 9.4 mg/dL (8.5-10.1); Chloride 108 mmol/L (98-107); Creatinine, Serum 0.95 mg/dL (0.70-1.30); EST Glomerular Filtration Rate 86 mL/min (>60); Est Glom Filt Rate - Afr Amer 104 mL/min (>60); Estimated Creatinine Clearance 81.66 ml/min; Glucose 87 mg/dL (74-106); Sodium Level 140 mmol/L (136-145); Troponin-I HS 6 pg/mL (3.0-78.0)
--- NOTE | 2022-09-06 20:10 | ED.VIS.CHEST ---
HPI History of Present Illness Chief Complaint: Chest Pain Narrative Narrative: 62-year-old male presenting with left-sided chest pain and heaviness in the left arm. He states that he has been having chest pain for about an hour. His arm pain developed while he was in the waiting room. He states it hurts when he moves his arm and starts to radiate into the chest it feels like it is tingling. It does not radiate to his back. It does not feel like it is ripping or tearing. He does not feel short of breath. He also admits to developing a mild headache and stating now that his left arm and left face feel tingly. He describes the sensation as a little bit less in these areas. He also complains of blurry vision in the left eye which is new since he has been in the waiting room. Patient reports he does not have a cardiac history except for syncopal episodes which she has had worked up and states that the work-ups have been normal and history of bradycardia [facility] Medical History Chest pain Irregular heart beat Allergy/AdvReac Type Severity Reaction Status Date / Time No Known Allergies Allergy Verified 09/06/22 19:06 Surgical History Hx of elbow surgery Previous back surgery Social History Smoking Status: Current every day smoker tobacco type: cigarettes ROS ROS ED Constitutional Constitutional ED: Denies chills or fever(s) Eyes Eyes: Reports blurry vision left ENT ENT ED: Denies rhinorrhea or sore throat Cardiovascular Cardiovascular: Reports chest pain Respiratory/Chest Respiratory/Chest: Denies cough or dyspnea Gastrointestinal Gastrointestinal: Denies abdominal pain, nausea or vomiting EXAM Physical Exam Const Vital Signs: 09/06/22 19:03 09/06/22 19:09 09/06/22 20:29 Temperature 97.8 F Temperature Source Temporal Pulse Rate 71 68 Respiratory Rate 69 H Blood Pressure 157/88 H 136/83 H Blood Pressure Mean 111 100 Pulse Ox 100 99 Oxygen Delivery Method Room Air Room Air 09/06/22 23:16 Temperature Temperature Source Pulse Rate Respiratory Rate Blood Pressure Blood Pressure Mean Pulse Ox 98 Oxygen Delivery Method Room Air MDM MDM MDM Narrative Medical decision making narrative: Patient presenting with chest pain initially. While he was in the waiting room he developed pain in the left arm which felt heavy. He complained of paresthesias in the left arm as well and when he tried to lift his left arm up off the bed he states the pain became intense and he felt numbness and tingling up into his chest. He also states that he has developed numbness and tingling in his left cheek. He has not had any facial droop, slurred speech, confusion. He has no symptoms in his left leg and has been ambulatory. He states he did develop some blurry vision in the left eye. He does not have a visual field cut however. His does report that he had had this the other day and was becoming very diaphoretic and drank some coffee when outside into the cool air and symptoms resolved. He does complain of a very mild headache. At most I can give him an NIH of 3. It does appear that his arm is more painful and when he moves it the pain increases. It appears to be painful when he can hold it up for short while but he rests it back on the bed because it hurts I am not completely sure if this is drift hitting the bed. He was given morphine and Zofran. EKG on my interpretation shows a sinus rhythm with a ventricular rate of 68 bpm without sign of ischemic change or dysrhythmia. His chest x-ray was negative for acute cardiopulmonary process on my interpreted. The radiologist interprets this and agrees. CBC and BMP were obtained and are unremarkable. High-sensitivity troponin is 6. Hgiven the neurologic symptoms and the chest pain I did obtain a CTA of the head and neck as well as the chest which did not show any acute findings. The patient reports that the blurry vision his left eye is improved and so has the numbness and tingling sensation in the left cheek and the left arm. His delta troponin returned at 6. And since his work-up was ultimately normal with some atypical neurologic findings I did get a SOC consult. The neurologist did recommend that we admit the patient for MRI as well as further cardiac work-up. Patient was amenable to this. Impression: 1. Strokelike symptoms 2. Chest pain 3. visual Lab Data Attestation: I reviewed the patient's lab results. Labs: Laboratory Results - last 24 hr 09/06/22 09/06/22 09/06/22 19:05 19:05 22:50 WBC 10.4 RBC 5.06 Hgb 15.1 Hct 46.0 MCV 90.9 MCH 29.8 MCHC 32.8 RDW Std Deviation 45.1 H RDW Coeff of Anila 13.3 Plt Count 291 MPV 9.4 Immature Gran % (Auto) 0.200 Neut % (Auto) 41.7 L Lymph % (Auto) 46.1 H Ada % (Auto) 8.0 Eos % (Auto) 3.3 Baso % (Auto) 0.7 Absolute Neuts (auto) 4.4 Absolute Lymphs (auto) 4.80 H Nucleated RBC % 0 Sodium 140 Potassium 4.0 Chloride 108 H Carbon Dioxide 28.0 Anion Gap 4 L BUN 18 Creatinine 0.95 Estim Creat Clear Calc 81.66 Est GFR (MDRD) Af Amer 104 Est GFR (MDRD) Non-Af 86 BUN/Creatinine Ratio 18.9 Glucose 87 Calcium 9.4 Troponin I High Sens 6 6 Radiography Diagnostic Testing: Clinical Impression(s) from Imaging Studies Chest X-Ray 09/06/22 19:10 IMPRESSION: There are no acute findings. Electronically Signed: Chuy Michael MD at 19:33 EST , Chest CTA 09/06/22 19:44 IMPRESSION: No demonstrated pulmonary embolism or arterial dissection. Electronically Signed: Chuy Michael MD at 21:26 EST , Head/Neck CTA 09/06/22 19:44 IMPRESSION: 1. There are no acute findings of the [place] without a demonstrated aneurysm or hemodynamically significant stenosis. ALL ABOVE CRITERIA BY NASCET. 2. There is mild atherosclerotic plaque formation of the origin of the right internal carotid artery with less than 50% cross sectional diameter stenosis. ALL ABOVE CRITERIA BY NASCET. 3. There is calcified plaque formation of the right cavernous carotid artery, with a mild stenosis (less than 50%). ALL ABOVE CRITERIA BY NASCET. 4. There is calcified plaque formation of the left cavernous carotid artery, with a mild stenosis (less than 50%). ALL ABOVE CRITERIA BY NASCET. Electronically Signed: Chuy Michael MD at 21:25 EST Reading Location ID and State: [facility] / [place] , Service support , Discharge Plan Triage Chief Complaint: Chest Pain ED Provider: Jay Burt Dx/Rx/DC Orders Primary Care Provider: Maged Casillas Referrals: Maged Casillas MD [Primary Care Provider] -
[2022-09-06] MEDS: Ondansetron 4 MG/2 ML Vial IV (20:27)
[2022-09-06] MEDS: Morphine 4 MG/ML Syringe IV (20:28)
[2022-09-06 20:29] VITALS: BP 136/83; PULSE 68
--- NOTE | 2022-09-06 22:38 | TELEMED_ITS ---
SOC Telemed has confirmed receipt of a request for visit. This document confirms receipt of the order initiating the consult. To find the results of the consultation, please view the patient's reports for the scanned Telemed Consult.
[2022-09-06 23:16] VITALS: O2SAT 98
[2022-09-06 23:16] LABS: Troponin-I HS 6 pg/mL (3.0-78.0)
[2022-09-07] VITALS (10 sets, daily range): BP systolic 115–130; BP diastolic 76–85; PULSE 57–80; RESP 15–18; TEMP 36.4–36.6; O2SAT 93–95; BMI 23.9
[2022-09-07] MEDS: Aspirin 81 MG TAB.CHEW 324 MG PO
--- NOTE | 2022-09-07 01:14 | PCM.HP.STD ---
HPI - General General Date of Admission: 09/07/22 Date of Service: 09/07/22 Chief Complaint: Left arm weakness HPI Narrative SIMRAN MANLEY, is a 62 M with a significant history of syncope bradycardia and COPD who presents emergency department with left arm weakness that started about 1 hour before presentation. Patient felt like his left arm was stiff and he could not move it. He had tingling in his fingers. Severity of his symptoms is left-sided sharp episodic chest pain. While at the emergency department patient developed tingling of his left face. Also he had blurry vision of his left eye. PFSH Medical History Cancer Chest pain Irregular heart beat Smoker Allergy/AdvReac Type Severity Reaction Status Date / Time No Known Allergies Allergy Verified 09/06/22 19:06 Family History (Updated 09/07/22 @ 07:[address] Gordo Ross MD) Other Heart disease Surgical History Hx of elbow surgery Previous back surgery Social History Smoking Status: Current every day smoker tobacco type: cigarettes ROS ROS Narrative Pertinent positives and pertinent negatives as noted in HPI. All other systems were reviewed and are negative Vital Signs Vital Signs Vital Signs: 09/06/22 19:03 09/06/22 19:09 09/06/22 20:29 Temperature 97.8 F Temperature Source Temporal Pulse Rate 71 68 Respiratory Rate 69 H Blood Pressure 157/88 H 136/83 H Blood Pressure Mean 111 100 Pulse Ox 100 99 Oxygen Delivery Method Room Air Room Air 09/06/22 23:16 Temperature Temperature Source Pulse Rate Respiratory Rate Blood Pressure Blood Pressure Mean Pulse Ox 98 Oxygen Delivery Method Room Air Weight Weight: 83.7 kg Body Mass Index (BMI) 27.2 Physical Exam Narrative Physical exam: General: Well-nourished, well-developed. Head: Normocephalic, atraumatic, no tenderness Eyes: Vision is grossly intact. EOMI ENT, no trauma, moist mucous membranes, no rhinorrhea Neck: Nontender, No thyromegaly. CVS: Regular rate and rhythm. S1-S2 present. No murmur, gallop or rub. Respiratory : Mild wheezing chest wall nontender, no wheezing. bowel sounds, no masses : Deferred Back: Nontender, no CVA tenderness, no midline spinal tenderness, deformities, step-offs Extremities: Nontender full range of motion, no trauma Skin: Normal color, no trauma, abrasions Neuro: Alert, oriented, poor vision of left eye with inability to count fingers. Strength in left upper extremity 4 out of 5. Strength in all extremities 5 out of 5. Psychiatry: Normal mood. Normal affect. Not depressed. Not anxious. Results Lab / Micro Data Result Diagrams: 09/07/22 05:40 09/07/22 05:40 Labs: Laboratory Results - last 24 hr 09/06/22 19:05: WBC 10.4, RBC 5.06, Hgb 15.1, Hct 46.0, MCV 90.9, MCH 29.8, MCHC 32.8, RDW Std Deviation 45.1 H, RDW Coeff of Anila 13.3, Plt Count 291, MPV 9.4, Immature Gran % (Auto) 0.200, Neut % (Auto) 41.7 L, Lymph % (Auto) 46.1 H, [place] % (Auto) 8.0, Eos % (Auto) 3.3, Baso % (Auto) 0.7, Absolute Neuts (auto) 4.4, Absolute Lymphs (auto) 4.80 H, Nucleated RBC % 0 09/06/22 19:05: Sodium 140, Potassium 4.0, Chloride 108 H, Carbon Dioxide 28.0, Anion Gap 4 L, BUN 18, Creatinine 0.95, Estim Creat Clear Calc 81.66, Est GFR (MDRD) Af Amer 104, Est GFR (MDRD) Non-Af 86, BUN/Creatinine Ratio 18.9, Glucose 87, Calcium 9.4, Troponin I High Sens 6 09/06/22 22:50: Troponin I High Sens 6 Radiology Impression Chest X-Ray 09/06/22 19:10 IMPRESSION: There are no acute findings. Electronically Signed: Chuy Michael MD at 19:33 EST , Chest CTA 09/06/22 19:44 IMPRESSION: No demonstrated pulmonary embolism or arterial dissection. Electronically Signed: Chuy Michael MD at 21:26 EST , Head/Neck CTA 09/06/22 19:44 IMPRESSION: 1. There are no acute findings of the [place] without a demonstrated aneurysm or hemodynamically significant stenosis. ALL ABOVE CRITERIA BY NASCET. 2. There is mild atherosclerotic plaque formation of the origin of the right internal carotid artery with less than 50% cross sectional diameter stenosis. ALL ABOVE CRITERIA BY NASCET. 3. There is calcified plaque formation of the right cavernous carotid artery, with a mild stenosis (less than 50%). ALL ABOVE CRITERIA BY NASCET. 4. There is calcified plaque formation of the left cavernous carotid artery, with a mild stenosis (less than 50%). ALL ABOVE CRITERIA BY NASCET. Electronically Signed: Chuy Michael MD at 21:25 EST , Assessment & Plan Assessment/Plan (1) Chest pain: (2) Stroke-like symptoms: PLAN: Plan Strokelike symptoms Serial NINDS NIH Scale ordered Head and neck CTA was visualized and independently interpreted and I agree with the interpretation of no acute disease. Lipid profile and A1c ordered. Physical therapy, occupational therapy and speech therapy to work with patient. N.p.o. until bedside swallow eval. Daily aspirin. High intensity statin Permissive hypertension. Control blood pressure with labetalol for systolic blood pressure of more than 220 or diastolic blood pressure of more than 120. MRI of brain Echocardiogram ordered. Chest Pain Place on a monitored bed at [facility] Chest CTA unremarkable. EKG sinus rhythm with no ST elevations ASA 81 mg p.o. daily ordered Morphine as needed for pain ordered We will check lipid panel. Initial cardiac enzymes x2 was negative. Trend. Stat EKG as needed for chest pain. DVT prophylaxis SCDs ordered. Charges/Coding Visit Charges Inpatient E&M: 24988 Init Hosp L2
[2022-09-07] MEDS: Morphine 4 MG/ML Syringe IV (02:12)
--- NOTE | 2022-09-07 03:10 | NURSING ---
emergency documentation effective since 09/07/2022, @8945
--- NOTE | 2022-09-07 03:12 | EKG12_ITS ---
Test Reason : ADMIT EKG Blood Pressure : / mmHG Vent. Rate : 056 BPM Atrial Rate : 056 BPM P-R Int : 196 ms QRS Dur : 114 ms QT Int : 436 ms P-R-T Axes : 069 076 069 degrees QTc Int : 420 ms Sinus bradycardia Otherwise normal ECG When compared with ECG of 06-SEP-2022 19:10, MANUAL COMPARISON REQUIRED, DATA IS UNCONFIRMED Confirmed by USMAN ARZOLA, MEAGAN ([id number]), film editor RAJNI GOMEZ ([id number]) on 09/08/2022 6:40:04 AM Referred By: Confirmed By:JOSÉ MIGUEL MARY MD
--- NOTE | 2022-09-07 03:12 | MRI_ITS ---
STUDY: MRI BRAIN WITHOUT CONTRAST REASON FOR EXAM: Male, 62 years old. Strokelike symptoms, syncope, left arm weakness, tingling left face TECHNIQUE: Standardized multiplanar fat and water weighted pulse sequences were obtained. COMPARISON: Head CT dated September 06, 2022 FINDINGS: Normal size of the ventricles and extra-axial spaces for the patient''s age. Normal white matter tracts of the supratentorial brain. There is no evidence for recent intracranial ischemia or other cause of cytotoxic edema on diffusion weighted imaging (DWI). Normal T2* images of the brain without demonstrated susceptibility artifact. There is no demonstrated hemosiderin stain. There are no demyelinating plagues of the supratentorial brain, brainstem or cerebellum. There are no findings suspicious for multiple sclerosis (MS). Normal bilateral basal ganglia. Normal thalami. There is no extra-axial fluid accumulation. Normal flow voids within the major intracranial circulation suggesting patency by spin echo criteria. Normal sella turcica, pituitary gland, infundibular stalk, optic chiasm and hypothalamus. Normal tectal plate and pineal gland. Normal midbrain, cosmo and medulla. Normal cerebellum. Normal basal cisterns. Normal bilateral temporal bones. Normal bilateral internal auditory canals. No demonstrated orbital abnormality, within the constraints of a routine brain study. There is mucoperiosteal inflammatory disease of the paranasal sinuses consistent with moderate chronic sinusitis. Normal calvarium and skull base. Normal visualized soft tissue structures. Normal visualized upper cervical spine. MRI/Brain without Contrast IMPRESSION: 1. Negative unenhanced MRI of the brain. Electronically Signed: Milad Mitchell MD at 11:17 EST ,
--- NOTE | 2022-09-07 03:12 | ECHOD_ITS ---
Reason For Study: TIA/CVA Procedure This was a 2D Doppler, Color Flow transthoracic echocardiogram. Exam performed portable in patient room. Left Ventricle Normal LV size. The estimated ejection fraction is 55 %. No evidence for diastolic dysfunction. No regional wall motion abnormalities noted. Right Ventricle Normal RV size. Normal systolic function. Atria Normal left atrium. Normal right atrium. No doppler evidence for ASD. Bubble contrast study negative for right to left interatrial shunt. Mitral Valve There is no mitral valve stenosis. Trivial mitral valve insufficiency. Tricuspid Valve There is no tricuspid stenosis. Trivial tricuspid valve insufficiency. Unable to estimate RV systolic pressure due to insufficient tricuspid regurgitant envelope. Aortic Valve There is no aortic stenosis. No aortic valve insufficiency. Pulmonic Valve There is no pulmonic valvular stenosis. No pulmonic valve insufficiency. Great Vessels Normal aortic root. Pericardium/Pleural No pericardial effusion. Medication Performed a rapid injection of agitated mix of 9 cc saline and 1cc air to assess for atrial septal defect. MMode/2D Measurements & Calculations LVIDd: 5.0 cm IVSd: 0.96 cm Ao root diam: 3.7 cm LVIDs: 3.7 cm LVPWd: 1.0 cm LA dimension: 3.5 cm RVDd: 4.0 cm FS: 27.4 % LAV(MOD-bp): 55.5 ml LA A4 area: 19.5 cm2 RA A4 area: 16.5 cm2 LAV(MOD-bp) Indexed: 28.4 ml/m2 LAV(MOD-sp2): 48.7 ml LAV(MOD-sp4): 55.3 ml Time Measurements MV dec time: 0.17 sec Doppler Measurements & Calculations MV E max nicolas: 63.9 cm/sec Lat Peak E' Nicolas: 10.9 cm/sec Med Peak E' Nicolas: 9.8 cm/sec MV A max nicolas: 66.0 cm/sec E/E' lat: 5.9 E/E' med: 6.5 MV E/A: 0.97 MV V2 max: 72.4 cm/sec MV P1/2t max nicolas: 72.9 cm/sec Ao V2 max: 88.5 cm/sec MV max P.1 mmHg MV P1/2t: 58.9 msec Ao max P.2 mmHg MV V2 mean: 38.2 cm/sec MV dec slope: 362.5 cm/sec2 Ao V2 mean: 61.8 cm/sec MV mean P.72 mmHg Ao mean P.8 mmHg MV V2 VTI: 25.1 cm MVA(P1/2t): 3.7 cm2 Ao V2 VTI: 20.7 cm AV (velocity ratio): 0.83 LV V1 max: 85.0 cm/sec PA V2 max: 94.4 cm/sec LV V1 max P.9 mmHg PA V2 mean: 63.5 cm/sec LV V1 mean P.5 mmHg LV V1 mean: 58.7 cm/sec LV V1 VTI: 17.2 cm ECHO/Echo Complete Interpretation Summary The estimated ejection fraction is 55 %. No evidence for diastolic dysfunction. Trivial mitral valve insufficiency. Ordering Physician: Gordo Ross Performed By: Brodwolf, Jae, RCS
[2022-09-07] MEDS: Albuterol 2.5 MG/3 ML VIAL.NEB. INHALATION ×2 (04:26→12:35)
[2022-09-07 05:13] LABS: Troponin-I HS 6 pg/mL (3.0-78.0)
[2022-09-07 05:54] LABS: Absolute Lymphocyte Count 3.66 X10^3/uL (0.83-4.51); Basophil# 0.04 X10^3/uL; Basophil% 0.5 % (0-1); Eosinophil# 0.28 X10^3/uL; Eosinophils% 3.2 % (0-5); Hematocrit 43.7 % (40-54); Hemoglobin 14.4 g/dL (13.0-16.5); Lymphocyte # 3.66 X10^3/ul (0.83-4.51); Lymphocyte % 42.3 % (19-41); Mean Corpuscular Hgb 29.9 pg (27.0-32.0); Mean Corpuscular Volume 90.9 fL (80-94); Mean Platelet Vol. 9.3 fl (6.2-12.0); Monocyte# 0.65 X10^3/uL; Monocyte% 7.5 % (0-10); NRBC Flagged by Analyzer 0 % (0-5); Neutrophil % 46.2 % (47-70); Platelet Count 254 K/mm3 (150-450); RBC Distribution Width CV 13.2 % (11.6-14.6); RBC Distribution Width SD 44.3 fl (35.1-43.9); Red Blood Count 4.81 M/mm3 (4.6-6.2); White Blood Count 8.7 K/mm3 (4.4-11.0)
[2022-09-07 06:27] LABS: Anion Gap 5 (5-15); BUN 18 mg/dL (7-18); BUN/Creat Ratio 19.7 RATIO (10-20); Chloride 107 mmol/L (98-107); Cholesterol 179 mg/dL (200); Creatinine, Serum 0.92 mg/dL (0.70-1.30); EST Glomerular Filtration Rate 89 mL/min (>60); Est Glom Filt Rate - Afr Amer 108 mL/min (>60); Estimated Creatinine Clearance 92.55 ml/min; Glucose 105 mg/dL (74-106); High Density Lipoprotein 41 mg/dL; Potassium 3.9 mmol/L (3.5-5.1); Sodium Level 140 mmol/L (136-145); Triglycerides 97 mg/dL; Troponin-I HS 6 pg/mL (3.0-78.0); Very Low Density Lipoprotein 19 mg/dL (5-40)
[2022-09-07 08:15] LABS: Bedside Glucose 90 mg/dL (74-106)
[2022-09-07 09:01] LABS: Hemoglobin A1c 5.7 % (3.8-5.6)
[2022-09-07 09:25] LABS: Troponin-I HS 6 pg/mL (3.0-78.0)
[2022-09-07] MEDS: Acetaminophen 325 MG Tablet 650 MG PO (11:12)
[2022-09-07] MEDS: Aspirin 81 MG TAB.CHEW PO (11:12)
--- NOTE | 2022-09-07 14:17 | CHAPLAIN ---
Type of Pastoral Visit _x__ Initial Visit ___ Follow-up Visit ___ On-call Visit ___ General Patient Visit ___ Spiritual Assessment ___ Family Conference ___ Bereavement ___ Rapid Response ___ Code Blue ___ Other (describe below) Pastoral Care Referral From _x__ Patient ___ Family ___ Nurse ___ Physician ___ Plumber Assistant ___ Marketing Strategy Manager ___ Other (describe below) Sacrament/Intervention _x__ Active listening ___ Anointing ___ Mormonism ___ Bereavement ___ Communion ___ [place] exploration ___ ___ Life review _x__ Prayer ___ Reconciliation ___ Sacrament of Sick _x__ Supportive presence ___ Wedding ___ Other (describe below) Pastoral Comments patient admits to feelings of fear when his health issues arose yesterday; pt is anxiously waiting the results of tests today but states that he is feeling better; pt has a family member with him; pt welcomes a prayer
--- NOTE | 2022-09-07 15:45 | DCINST_ITS ---
Discharge Instructions Diet Discharge Diet: Low fat / Low cholesterol and 2000 mg Sodium Diet Activity Discharge Activity: Return to Normal Activity Follow Up Care Test Results: Test results from this visit will be discussed in further detail at your follow- up appointment, if applicable. Discharge Plan Admission Admit Date/Time: 09/07/22 01:01 Primary Reason for Your Visit: TIA Attending Provider: Scarlett Hardin Primary Care Provider: Maged Casillas Consulting Providers: Gordo Ross Instructions Additional Instructions / Restrictions: Take note of your new medications Follow-up with your primary care doctor and neurology as you will need a 30-day event monitor. Continue to keep yourself hydrated Do not drive until you have followed up with your neurologist Discharge Orders/Prescriptions Prescriptions: New atorvastatin 80 mg Tablet 80 mg PO QHS 30 Days Qty: 30 0RF aspirin 81 mg Tablet,Chewable 81 mg PO BREAKFAST 30 Days Qty: 30 0RF Referrals / Follow Up: Maged Casillas MD [Primary Care Provider] - In 1 Week Disposition Disposition (needs filled in before D/C Order can be placed): Home, Self Care
--- NOTE | 2022-09-07 16:04 | DS.PCM_ITS ---
Providers Date of Admission: 09/07/22 Date of Discharge: 09/07/22 Primary Care Physician: Dr. Maged Casillas MD Reason For Visit: STROKELIKE SYMPTOMS Diagnosis Discharge Diagnosis (1) Stroke-like symptoms: Status: Acute Code(s): R29.90 - Unspecified symptoms and signs involving the nervous system Medications at Discharge Home Medications aspirin 81 mg chewable tablet 81 mg PO BREAKFAST 30 days #30 tabs 09/07/22 atorvastatin 80 mg tablet 80 mg PO QHS 30 days #30 tabs 09/07/22 Hospital Course Operations None Procedures 2-D Echocardiogram Summary of Care Provided Minutes Spent on Discharge: 35 Hospital Course: 62-year-old male with past medical history of recurrent syncope, bradycardia, follows up with neurology in the [facility] who comes in with sudden onset of left arm weakness that started 1 hour before. Associated with tingling in his fingers and left side of the face as well as blurred vision. Patient's initial CTA of the head and neck was unremarkable. Patient was admitted to the progressive care unit and monitored on telemetry. He underwent MRI of the brain that was unremarkable. 2D echo showed EF of 55%, no other abnormalities. Patient's symptoms had all resolved at time of discharge. He was strongly recommended to follow-up with his neurologist in the [facility] in 1 to 2 weeks. Also asked to follow-up with his primary care doctor within a week. Physical Exam Narrative Physical exam: General: Alert, Oriented x3, Cooperative HEENT: Atraumatic Oral: Moist Mucosa Neck: Supple Lungs: Clear to auscultation Cardiovascular: HS I+II, regular, no murmurs Abdomen: Bowel Sounds Present, Soft, Non Tender Extremities: No edema Skin: No rashes, No breakdown Neurological: Grossly intact Psych/Mental Status: Appropriate Weight / BMI Weight Weight: 80 kg Body Mass Index (BMI) 23.9 ABG / Lab / Microbiology Data Result Diagrams: 09/07/22 05:40 09/07/22 05:40 Laboratory: Laboratory Results - last 24 hr 09/06/22 19:04: POC Glucose 90 09/06/22 19:05: WBC 10.4, RBC 5.06, Hgb 15.1, Hct 46.0, MCV 90.9, MCH 29.8, MCHC 32.8, RDW Std Deviation 45.1 H, RDW Coeff of Anila 13.3, Plt Count 291, MPV 9.4, Immature Gran % (Auto) 0.200, Neut % (Auto) 41.7 L, Lymph % (Auto) 46.1 H, Grady % (Auto) 8.0, Eos % (Auto) 3.3, Baso % (Auto) 0.7, Absolute Neuts (auto) 4.4, Absolute Lymphs (auto) 4.80 H, Nucleated RBC % 0 09/06/22 19:05: Sodium 140, Potassium 4.0, Chloride 108 H, Carbon Dioxide 28.0, Anion Gap 4 L, BUN 18, Creatinine 0.95, Estim Creat Clear Calc 81.66, Est GFR (MDRD) Af Amer 104, Est GFR (MDRD) Non-Af 86, BUN/Creatinine Ratio 18.9, Glucose 87, Calcium 9.4, Troponin I High Sens 6 09/06/22 22:50: Troponin I High Sens 6 09/07/22 03:22: Troponin I High Sens 6 09/07/22 05:40: WBC 8.7, RBC 4.81, Hgb 14.4, Hct 43.7, MCV 90.9, MCH 29.9, MCHC 33.0, RDW Std Deviation 44.3 H, RDW Coeff of Anila 13.2, Plt Count 254, MPV 9.3, Immature Gran % (Auto) 0.300, Neut % (Auto) 46.2 L, Lymph % (Auto) 42.3 H, Grady % (Auto) 7.5, Eos % (Auto) 3.2, Baso % (Auto) 0.5, Absolute Neuts (auto) 4.0, Absolute Lymphs (auto) 3.66, Nucleated RBC % 0 09/07/22 05:40: Sodium 140, Potassium 3.9, Chloride 107, Carbon Dioxide 28.0, Anion Gap 5, BUN 18, Creatinine 0.92, Estim Creat Clear Calc 92.55, Est GFR (MDRD) Af Amer 108, Est GFR (MDRD) Non-Af 89, BUN/Creatinine Ratio 19.7, Glucose 105, Calcium 9.0, Troponin I High Sens 6, Triglycerides 97, Cholesterol 179, LDL Cholesterol 119, VLDL Cholesterol 19, HDL Cholesterol 41 09/07/22 05:40: Hemoglobin A1c 5.7 H 09/07/22 08:55: Troponin I High Sens 6 Radiography Diagnostic Testing: Radiology Impression Chest X-Ray 09/06/22 19:10 IMPRESSION: There are no acute findings. Electronically Signed: Chuy Michael MD at 19:33 EST , Chest CTA 09/06/22 19:44 IMPRESSION: No demonstrated pulmonary embolism or arterial dissection. Electronically Signed: Chuy Michael MD at 21:26 EST , Head/Neck CTA 09/06/22 19:44 IMPRESSION: 1. There are no acute findings of the [place] of [place] without a demonstrated aneurysm or hemodynamically significant stenosis. ALL ABOVE CRITERIA BY NASCET. 2. There is mild atherosclerotic plaque formation of the origin of the right internal carotid artery with less than 50% cross sectional diameter stenosis. ALL ABOVE CRITERIA BY NASCET. 3. There is calcified plaque formation of the right cavernous carotid artery, with a mild stenosis (less than 50%). ALL ABOVE CRITERIA BY NASCET. 4. There is calcified plaque formation of the left cavernous carotid artery, with a mild stenosis (less than 50%). ALL ABOVE CRITERIA BY NASCET. Electronically Signed: Chuy Michael MD at 21:25 EST , Brain MRI 09/07/22 03:12 IMPRESSION: 1. Negative unenhanced MRI of the brain. Electronically Signed: Milad Mitchell MD at 11:17 EST , Echocardiogram 09/07/22 03:12 Interpretation Summary The estimated ejection fraction is 55 %. No evidence for diastolic dysfunction. Trivial mitral valve insufficiency. Ordering Physician: Gordo Ross Performed By: Jae Rizzo RCS D/C Instructions Discharge Diet: Low fat / Low cholesterol and 2000 mg Sodium Diet Meaningful Use Info Meaningful Use Diagnoses (Choose all that apply): None applicable Discharge Plan Admission Admit Date/Time: 09/07/22 01:01 Primary Reason for Your Visit: TIA Attending Provider: Scarlett Hardin Primary Care Provider: Maged Casillas Consulting Providers: Gordo Ross Instructions Additional Instructions / Restrictions: Take note of your new medications Follow-up with your primary care doctor and neurology as you will need a 30-day event monitor. Continue to keep yourself hydrated Do not drive until you have followed up with your neurologist Discharge Orders/Prescriptions Prescriptions: New atorvastatin 80 mg Tablet 80 mg PO QHS 30 Days Qty: 30 0RF aspirin 81 mg Tablet,Chewable 81 mg PO BREAKFAST 30 Days Qty: 30 0RF Referrals / Follow Up: Maged Casillas MD [Primary Care Provider] - In 1 Week Disposition Disposition (needs filled in before D/C Order can be placed): Home, Self Care Charges/Coding Visit Charges Inpatient E&M: 48728 Disch Hosp >30min
== END 2022-09-07 15:42 | disposition home or self-care (01) ==
LOC: ED 19:52 → PCU 09-07 03:24
PROVIDERS: Admitting Provider Hospitalist; Emergency Provider Student in an Organized Health Care Education/Training Program; PCP Family Medicine; Visit Provider Internal Medicine
DX: R07.89 Other chest pain (principal); J44.9 Chronic obstructive pulmonary disease, unspecified; M79.603 Pain in arm, unspecified; F17.210 Nicotine dependence, cigarettes, uncomplicated; R53.1 Weakness; R00.1 Bradycardia, unspecified; R29.90 Unspecified symptoms and signs involving the nervous system; R20.2 Paresthesia of skin; H53.8 Other visual disturbances
CPT/HCPCS: 36415; 70496; 70498; 70551; 71045; 71275; 80048; 80061; 82962; 83036; 84484; 85025; 93005; 93306; 94640; 94762; 96374; 96375; 96376; 99221; 99285; 99406; Q9967; A4216; G0378; J2405